=== PATIENT | female | born 2005 | race Two or more races ===

== ENCOUNTER 2025-06-17 14:08 | Outpatient (AMB) | payer OTHER, SELFPAY ==
--- NOTE | 2025-06-17 14:12 | MHC.AMNUTRGE ---
VS Expanded 06/17/25 14:16 Height 5 ft 4 in Weight 135 lb BMI 23.2 Intake Visit Reasons: Obesity Nutrition Presentation Details: Pt presents for MNT for hyperlipidemia Patient reports choosing lactose free options related to lactose intolerance Reports having changed the diet completed in due to high cholesterol. Patient reports increased intake of fast food meals but now is working on having more homemade meals and choosing high-fiber foods Breakfast: Oatmeal with water fruits and rubens seeds or flaxseed ( or english yogurt with fruits smoothies ( fruits and milk alternatives and protein powder) Dinner: Rice, chicken and beans or salad and beans Participates in physical activity 2 to 3 times a week, treadmill 30 minutes to 1 hour Food frequency Fruits 1-2 a day Dairy alert challenges 2 to 3 times a day Fish 0 to once a week Vegetables: 3 times a week Empty calorie foods 2 to 3 times a week IVW-[id number]-Nl.Jeor Equation Height: 5 ft 4 in Weight: 135 lb Resting Metabolic Rate: 1368.34 Calculated Activity Level: Mild Activity Calories Needed to Maintain Weight: 1881.47 Diagnosis Nutrition problem #1: altered nutrition labs As related to (etiology) #1: lack of nutrit education As evidenced by (sign/symptom) #1: abnormal lab values Monitoring/Goals Nutrition problem monitoring: level of knowledge/skill Outcome progress: verbalized understanding Learning/Education Readiness to learn: good Stages of change: action Educational materials provided: Yes (Meal planning, low cholesterol nutrition information from [facility]) Assessment & Plan Assessment & Plan (1) Hyperlipemia: Code(s): E78.5 - Hyperlipidemia, unspecified Category: Medical Plan: current wt: 60kg ( June 22 ) est kcal needs as per MSJ: 6687-9209 est protein needs as per 1 g/kg BW: 60 est fluid needs as per 30 ml/kg BW: 1800 Recommended fiber > 12 g /day and gradually increase up to 25-28 g /day or as tolerated Nutrition topics discussed : Reviewed (R), Pt verbalized understanding (V) , not applicable (N/A) R, : Healthy Plate Method Concept: R, V, N/A: Carbohydrates: food sources of carbohydrates, relationship of carbohydrates to blood glucose, fatty liver GI health. Recommended total amount of carbohydrates per meals and snack. Differences between simple carbohydrates and complex carbohydrates R, : Lean protein foods including vegan , vegetarian sources of protein. Benefits of protein (including but not limited to healing, nutritional value , benefits in weight loss, glucose control R, : Fats : Source of fats, benefits of fats. Difference between saturated and unsaturated fats. Saturated fats and its contribution to inflammation R, A: Fiber: food sources and role of fiber in the diet (including but not limited to its role as a prebiotic, benefits in constipation, role in IBS , role in glucose control and cholesterol level) R, : Hydration: role of hydration and prevention of dehydration or over hydration. Foods and water content. R, V, N/A: Vitamins and Minerals in foods and supplements R, : Interpreting food labels, including serving size, macronutrients, vitamins, minerals, allergens, ingredient list , % daily value Coding Level of Care Code Nutr Indiv Intake (67561) Diagnoses Hyperlipemia E78.5 Time Spent (min) 30
[2025-06-17 14:16] VITALS: BMI 23.2
[2025-06-28 14:57] VITALS: BMI 23.2
== END 2025-06-17 14:52 | disposition home or self-care (01) ==
LOC: HO.ENCR 14:09
PROVIDERS: PCP Internal Medicine; Visit Provider Dietitian, Registered
DX: E78.5 Hyperlipidemia, unspecified (principal)

== ENCOUNTER → 2025-06-17 14:08 | Outpatient (BNVA) | payer OTHER, SELFPAY | PROVIDERS: PCP Internal Medicine; Visit Provider Dietitian, Registered | DX: Z71.3 Dietary counseling and surveillance (principal); E78.5 Hyperlipidemia, unspecified | CPT/HCPCS: 97802 ==